=== PATIENT | female | born 1950 | race Two or more races ===

== ENCOUNTER 2024-06-03 10:58 | Inpatient (IN) | payer OTHER ==
[~2024-06-03] VITALS: Ht 157.5 cm; Wt 64.4 kg
[2024-06-03 12:14] LABS: BASOPHILS # (AUTO) 0.1 K/uL (0.0-0.2); BASOPHILS % (AUTO) 2.3 % (0.0-2.0); EOSINOPHILS # (AUTO) 0.2 K/uL (0.0-0.7); EOSINOPHILS % (AUTO) 4.4 % (0.0-6.0); HEMATOCRIT 45 % (33-45); LYMPHOCYTES # (AUTO) 1.5 K/uL (0.8-4.8); LYMPHOCYTES % (AUTO) 28.8 % (20.0-44.0); MEAN CORPUSCULAR HEMOGLOBIN 28 PG (26.0-33.0); MEAN CORPUSCULAR HGB CONC 34 g/dl (31.0-36.0); MEAN CORPUSCULAR VOLUME 83 fL (82-100); MONOCYTES # (AUTO) 0.4 K/uL (0.1-1.30); MONOCYTES % (AUTO) 7.9 % (2.0-12.0); NEUTROPHILS # (AUTO) 2.9 K/uL (1.8-8.9); NEUTROPHILS % (AUTO) 56.6 % (43.0-81.0); PLATELET COUNT (AUTO) 259 K/uL (150-450); RED CELL DISTRIBUTION WIDTH 14.1 % (11.5-15.0); WHITE BLOOD COUNT (AUTO) 5.1 K/uL (4.3-11.0)
[2024-06-03 12:18] LABS: ALBUMIN 3.9 g/dL (3.4-5.0); BILIRUBIN,DIRECT 0.1 mg/dL (0.0-0.2); BILIRUBIN,TOTAL 0.6 mg/dL (0.2-1.0); CALCIUM, SERUM 9.1 mg/dL (8.5-10.1); POTASSIUM 3.7 mmol/L (3.5-5.1); TOTAL PROTEIN, SERUM 7.4 g/dL (6.4-8.2)
[2024-06-03] MEDS: ACETAMINOPHEN ES 500 MG TABLET PO ONE (12:26)
[2024-06-03] MEDS ORDERED: MAG HYDROX/AL HYDROX/SIMETH 30 ML UDC ONE (12:29)
[2024-06-03] MEDS ORDERED: LIDOCAINE VISCOUS 2% UD 15 ML UDC ONE (12:29)
[2024-06-03] MEDS ORDERED: ONDANSETRON HCL/PF 4 MG/2 ML VIAL ONE (12:29)
[2024-06-03] MEDS ORDERED: PANTOPRAZOLE 40 MG VIAL ONE (12:29)
[2024-06-03] MEDS: ONDANSETRON HCL/PF 4 MG/2 ML VIAL IVP ONE (12:35)
[2024-06-03] MEDS: MAG HYDROX/AL HYDROX/SIMETH 30 ML UDC PO ONE (12:36)
[2024-06-03] MEDS: IV NS 0.9% 1,000 ML BAG IV ONE (12:37)
[2024-06-03] MEDS: LIDOCAINE VISCOUS 2% UD 15 ML UDC MM ONE (12:38)
[2024-06-03] MEDS: PANTOPRAZOLE 40 MG VIAL IV ONE (12:40)
[2024-06-03] MEDS ORDERED: hydrALAZINE HCL IV 20 MG VIAL ONE (13:09)
[2024-06-03] MEDS ORDERED: MORPHINE SULFATE INJ 4 MG/ML DISP.SYRIN ONE (13:10)
[2024-06-03] MEDS: hydrALAZINE HCL IV 20 MG VIAL IV ONE (13:15)
[2024-06-03] MEDS ORDERED: ACETAMINOPHEN ES 500 MG TABLET ONE (13:18)
[2024-06-03] MEDS ORDERED: IOHEXOL-350 100 ML VIAL IV ONE (13:33)
[2024-06-03] MEDS ORDERED: CT SWABBABLE VALVE TRANS SET 1 EA INFUS.SET MC ONE (13:33)
[2024-06-03] MEDS ORDERED: IV NS 0.9% 250 ML IV ONE (13:33)
[2024-06-03] MEDS: MORPHINE SULFATE INJ 2 MG/ML DISP.SYRIN IV ONE (13:53)
[2024-06-03] MEDS: LIDOCAINE 5% (PATCH) 1 EA PATCH TP STA (14:28)
[2024-06-03] MEDS ORDERED: LIDOCAINE 5% (PATCH) 1 EA PATCH TP ONE (14:29)
[2024-06-03 14:33] LABS: APPEARANCE,URINE CLEAR (CLEAR); BILIRUBIN,URINE NEGATIVE (NEGATIVE); BLOOD, URINE NEGATIVE Ery/uL (NEGATIVE); COLOR,URINE YELLOW (YELLOW); KETONES,URINE NEGATIVE (NEGATIVE); LEUKOCYTE ESTERASE ,URINE NEGATIVE (NEGATIVE); NITRITE, URINE NEGATIVE (NEGATIVE); PROTEIN,URINE NEGATIVE (NEGATIVE); UGLUCOSE NEGATIVE (NEGATIVE); UROBILINOGEN,URINE 0.2 EU/dL (0.2)
[2024-06-03] MEDS ORDERED: PANT40TA49 PO (14:39)
[2024-06-03] MEDS ORDERED: HYDR25TA4 PO (14:39)
[2024-06-03] MEDS ORDERED: BRIM5DRO11 EACHEYE (14:39)
[2024-06-03] MEDS ORDERED: MAGN250T10 PO (14:39)
[2024-06-03] MEDS ORDERED: CYAN-51 PO (14:39)
[2024-06-03] MEDS ORDERED: BIMA2.5D5 EACHEYE (14:39)
[2024-06-03] MEDS ORDERED: Z GUARD REMEDY 4 OZ OINT TP PRN (15:30)
[2024-06-03] MEDS ORDERED: MORPHINE SULFATE INJ 2 MG/ML DISP.SYRIN IV PRN (15:30)
[2024-06-03] MEDS ORDERED: MAGNESIUM HYDROXIDE 30 ML UDC PO PRN (15:30)
[2024-06-03] MEDS: ONDANSETRON HCL/PF 4 MG/2 ML VIAL IVP PRN (17:13)
[2024-06-03] MEDS: ENOXAPARIN SODIUM 40 MG/0.4 ML DISP.SYRIN SQ SCH (21:00)
[2024-06-03 21:45] VITALS: BP 146/78; TEMP 97.3; O2SAT 95
[2024-06-03] MEDS: MAG HYDROX/AL HYDROX/SIMETH 30 ML UDC PO PRN (22:23)
[2024-06-03] MEDS: ACETAMINOPHEN 325 MG TABLET PO PRN (22:23)
[2024-06-04] VITALS: BP 139/68; TEMP 98.2; O2SAT 96
[2024-06-04 04:00] VITALS: BP 180/80; TEMP 98.1; O2SAT 95
[2024-06-04] MEDS: CLONIDINE HCL 0.1 MG TABLET PO PRN (04:32)
[2024-06-04 05:00] VITALS: BP 188/70; TEMP 98.1; O2SAT 95
[2024-06-04 07:21] LABS: BASOPHILS % (AUTO) 0.7 % (0.0-2.0); EOSINOPHILS # (AUTO) 0.3 K/uL (0.0-0.7); EOSINOPHILS % (AUTO) 7.1 % (0.0-6.0); HEMATOCRIT 38 % (33-45); HEMOGLOBIN 13.2 g/dL (11.5-14.8); LYMPHOCYTES # (AUTO) 1.2 K/uL (0.8-4.8); LYMPHOCYTES % (AUTO) 29.7 % (20.0-44.0); MEAN CORPUSCULAR HEMOGLOBIN 29 PG (26.0-33.0); MEAN CORPUSCULAR HGB CONC 35 g/dl (31.0-36.0); MEAN CORPUSCULAR VOLUME 82 fL (82-100); MONOCYTES # (AUTO) 0.4 K/uL (0.1-1.30); MONOCYTES % (AUTO) 9.7 % (2.0-12.0); NEUTROPHILS # (AUTO) 2.1 K/uL (1.8-8.9); NEUTROPHILS % (AUTO) 52.8 % (43.0-81.0); PLATELET COUNT (AUTO) 219 K/uL (150-450); RED BLOOD CELL COUNT(AUTO) 4.63 MIL/uL (4.0-5.2); RED CELL DISTRIBUTION WIDTH 13.9 % (11.5-15.0)
[2024-06-04 07:56] LABS: CALCIUM, SERUM 8.1 mg/dL (8.5-10.1); CREATININE 0.9 mg/dL (0.6-1.3); MAGNESIUM 2.3 mg/dL (1.8-2.4); PHOSPHORUS 3.5 mg/dL (2.5-4.9); POTASSIUM 3.5 mmol/L (3.5-5.1)
[2024-06-04] MEDS: PANTOPRAZOLE 40 MG TABLET.DR PO SCH (08:08)
[2024-06-04 09:02] LABS: PLATELET ESTIMATE ADEQUATE
[2024-06-04] MEDS: NIFEdipine XL (30MG) 30 MG TAB PO SCH (12:19)
[2024-06-04 20:00] VITALS: BP 121/63; TEMP 98.2; O2SAT 98
[2024-06-05] VITALS: BP 122/63; TEMP 98.1; O2SAT 97
[2024-06-05 04:00] VITALS: BP 168/72; TEMP 97.7; O2SAT 98
[2024-06-05 06:56] LABS: BASOPHILS # (AUTO) 0.1 K/uL (0.0-0.2); BASOPHILS % (AUTO) 1.2 % (0.0-2.0); EOSINOPHILS # (AUTO) 0.3 K/uL (0.0-0.7); EOSINOPHILS % (AUTO) 6.9 % (0.0-6.0); HEMATOCRIT 39 % (33-45); HEMOGLOBIN 13.2 g/dL (11.5-14.8); LYMPHOCYTES # (AUTO) 1.4 K/uL (0.8-4.8); LYMPHOCYTES % (AUTO) 32.7 % (20.0-44.0); MEAN CORPUSCULAR HEMOGLOBIN 28 PG (26.0-33.0); MEAN CORPUSCULAR HGB CONC 34 g/dl (31.0-36.0); MEAN CORPUSCULAR VOLUME 82 fL (82-100); MONOCYTES # (AUTO) 0.4 K/uL (0.1-1.30); MONOCYTES % (AUTO) 8.2 % (2.0-12.0); NEUTROPHILS # (AUTO) 2.2 K/uL (1.8-8.9); PLATELET COUNT (AUTO) 217 K/uL (150-450); RED BLOOD CELL COUNT(AUTO) 4.73 MIL/uL (4.0-5.2); WHITE BLOOD COUNT (AUTO) 4.4 K/uL (4.3-11.0)
[2024-06-05 07:00] VITALS: BP 96/82; TEMP 97.5; O2SAT 96
[2024-06-05 07:04] LABS: CALCIUM, SERUM 9.4 mg/dL (8.5-10.1); CREATININE 0.9 mg/dL (0.6-1.3); POTASSIUM 3.9 mmol/L (3.5-5.1)
[2024-06-05 08:00] VITALS: BP 158/72; TEMP 97.7; O2SAT 97
[2024-06-05] MEDS ORDERED: PANT40TA2 PO (10:15)
[2024-06-05] MEDS ORDERED: NIFE-34 PO (10:15)
[2024-06-05 12:00] VITALS: BP 139/61; TEMP 97.8; O2SAT 98
== END 2024-06-05 17:49 | disposition home or self-care (01) | DRG 305 ==
LOC: ER 13:02 → TELE1 18:37 → TELE 21:23
PROVIDERS: ADMIT Internal Medicine; ATTEND Internal Medicine
DX: I16.0 Hypertensive urgency (principal); E11.9 Type 2 diabetes mellitus without complications; M54.2 Cervicalgia; K27.9 Peptic ulcer, site unspecified, unspecified as acute or chronic, without hemorrhage or perforation; R79.89 Other specified abnormal findings of blood chemistry
CPT/HCPCS: 36415; 70450-TC; 70496-TC; 70498-TC; 71045-TC; 80048-TC; 80076-TC; 83690-TC; 83735-TC; 84100-TC; 85025-TC; 97110-TC; 97116-TC; 97530-TC; G0378; J0360; J1650; J2270; J2405; J2470; J7030; J7050; Q9967